=== PATIENT | male | born 2000 | race African-American/Black ===

== ENCOUNTER 2023-02-25 15:49 | Emergency (ER) | payer OTHER, SELFPAY ==
[2023-02-25 15:57] VITALS: BP 145/65; PULSE 77; RESP 20; TEMP 37.5; O2SAT 99
--- NOTE | 2023-02-25 17:14 | ED.URI ---
HPI - URI/Sore Throat General Chief Complaint: Upper Respiratory Infection Stated Complaint: Sore Throat, Congestion, Vommiting Time Seen by Provider: 02/25/23 17:14 Source: patient, RN notes reviewed and old records reviewed Mode of arrival: ambulatory Limitations: no limitations History of Present Illness HPI Narrative: 23 year old male who presents to [facility] care with complaints of sore throat, respiratory congestion,cough,and some vomiting with some mild abdominal discomfort mid abdomen and sweats for 3 day duration. Patient reports that he has been taking Benadryl for his symptoms. Patient denies any known fevers, denies any body aches.Patient states that he has had intermittent episodes of vomiting has not vomited today is able to drink liquids but appetite is decreased, denies any diarrhea reports normal BM today. MD elicited complaint: cough, sore throat, rhinorrhea, nasal congestion and other (nausea and vomiting.) Onset (ago): day(s) (3) Pain scale (0-10): 5 Able to tolerate fluids by mouth: Yes Treatments prior to arrival: other (Benadryl) Related Data Allergies Allergy/AdvReac Type Severity Reaction Status Date / Time No Known Allergies Allergy Verified 02/25/23 16:05 Review of Systems Review of Systems: CONSTITUTIONAL: Reports malaise,no chills,positive for sweats, no known fever. EYES: Denies visual changes, redness, or discharge. ENT: Reports rhinorrhea, congestion, no sinus pain,no otalgia and positive for sore throat. CARDIOVASCULAR: Denies chest pain, palpitations, or edema. RESPIRATORY: Reports cough.? Denies dyspnea. GASTROINTESTINAL:Reports mild mid abdominal pain, nausea, vomiting,no diarrhea SKIN: Denies rash or itching. MUSCULOSKELETAL: Denies myalgia. NEUROLOGIC: Denies headache. All systems reviewed & are unremarkable except as noted in HPI and below PMFSH Past Medical History Medical History (Updated 02/27/23 @ 17:40 by Daksha Daily NP) No pertinent past medical history Surgical History Surgical History (Updated 02/27/23 @ 17:39 by Daksha Daily NP) No pertinent past surgical history Social History Social History (Updated 02/27/23 @ 17:31 by Daksha Daily NP) Smoking status: Current every day smoker Tobacco type: e-cigarettes/vaping Alcohol intake: current Alcohol use details: social Substance use type: does not use Living arrangements: with family Gender identity (if verbalized by the patient): Male Comments At time of signature, agree with nursing past medical, surgical, social and family history. There is no relevant family history pertinent to the presenting complaint Exam Narrative: GENERAL: Well-appearing, well-nourished, and in no acute distress. HEAD: Normocephalic EYES: PERRLA, conjunctivae clear ENT: Nares clear, turbinates edematous and erythematous, clear discharge. Mucous membranes moist. TM pearly schultz with dull light reflex bilaterally; no tragal tenderness. Oropharynx erythematous without lesions. Tonsils not enlarged and without exudate, no drooling, no hoarseness, no trismus, uvula midline.post nasal drainage noted NECK: Supple. No lymphadenopathy CHEST: Clear to auscultation, breath sounds equal. No wheezing, rhonchi, rales, or stridor. No respiratory distress, speaks in full sentences.cough noted,SAO2 99% on room air HEART: Regular rate and rhythm. No murmur heard. SKIN: Warm, dry, no rash. NEURO: Alert and oriented x3. PSYCH: Normal mood and affect Course Course Emergency Course: Patient is aware of diagnosis, understands and agrees to treatment plan.? Anticipatory guidance given.? Patient agrees to follow-up as directed and is aware of reasons to seek care at the emergency department. Portions of this record may have been created with voice recognition software Level of Care: Express Care Visit Vital Signs Vital signs: Vital Signs Temperature 37.5 C 02/25/23 15:57 Pulse Rat
== END 2023-02-25 17:30 | disposition home or self-care (01) ==
PROVIDERS: Emergency Provider Registered Nurse
DX: J06.9 Acute upper respiratory infection, unspecified (principal); J02.9 Acute pharyngitis, unspecified; F17.290 Nicotine dependence, other tobacco product, uncomplicated
CPT/HCPCS: 87081; 87880; 99213; G0463

== ENCOUNTER 2024-06-27 17:51 | Emergency (ER) | payer OTHER, SELFPAY ==
--- NOTE | ~2024-06-27 | XR_ITS ---
EXAM: XR ankle LT min 3V DATE: 06/27/2024 18:25 HISTORY: injury playing basketball, swelling lateral malleolus. . COMPARISON: None available. FINDINGS: Normal mineralization. Small ossific fragment distal to the lateral malleolus. No lytic or blastic lesion. Joint spaces are maintained. No erosion or periosteal change. Lateral soft tissue sw elling. IMPRESSION: Small lateral malleolus tip avulsion. Reviewed, dictated and finalized at location K.
[2024-06-27 18:00] VITALS: BP 133/76; PULSE 63; RESP 20; TEMP 36.7; O2SAT 99
--- NOTE | 2024-06-27 18:12 | ED_ITS ---
HPI - General Adult General Chief complaint: Extremity Injury, Lower Stated complaint: left ankle injury Time Seen by Provider: 06/27/24 18:12 Source: patient Mode of arrival: ambulatory Limitations: no limitations History of Present Illness HPI narrative: 24 year old male who presents to [facility] care with complaints of pain to his left lateral ankle region after playing basketball yesterday and jumped up and came down hard on his left foot, Patient has noted swelling and bruising to his left lateral ankle with increased pain with ambulation and movement of ankle.. Patient reports that he has had past ankle sprain to the left lateral ankle. Patient reports that he has iced his left lateral ankle but has not taken any OTC medications for his symptoms. MD complaint: left lateral ankle pain Onset (ago): day(s) (day 2 of symptoms) Location: left (lateral ankle) and lower extremity Severity: moderate Severity scale (1-10): 3 Treatments prior to arrival: cold therapy Related Data Home Medications ?Medication ?Instructions ?Recorded ?Confirmed ?Last Taken ?Type No Home Medications 06/27/24 06/27/24 Unknown History Allergies Allergy/AdvReac Type Severity Reaction Status Date / Time No Known Allergies Allergy Verified 06/27/24 18:26 Review of Systems Review of Systems: CONSTITUTIONAL: Denies fever, chills, or sweats. EYES: Denies visual changes, redness, or discharge. ENT: Denies rhinorrhea, congestion, sore throat, or otalgia. CARDIOVASCULAR: Denies chest pain, palpitations, or edema. RESPIRATORY: Denies cough or dyspnea. GASTROINTESTINAL: Denies abdominal pain, nausea, vomiting, or diarrhea. GENITOURINARY: Denies dysuria or hematuria. SKIN: Denies rash or itching. MUSCULOSKELETAL: Denies back pain, positive for left lateral ankle pain and swelling, or myalgia. NEUROLOGIC: Denies headache, numbness, or weakness. PSYCHIATRIC: Denies anxiety or depression. All systems reviewed & are unremarkable except as noted in HPI and below PMFSH Past Medical History Medical History No pertinent past medical history Surgical History Surgical History No pertinent past surgical history Social History Social History Smoking status: Current every day smoker Tobacco type: e-cigarettes/vaping Alcohol intake: current Alcohol use details: social Substance use type: does not use Living arrangements: with family Gender identity (if verbalized by the patient): Male Comments At time of signature, agree with nursing past medical, surgical, social and family history. There is no relevant family history pertinent to the presenting complaint Exam Narrative: GENERAL: Well-appearing, well-nourished, and in no acute distress. HEAD: Normocephalic, atraumatic. EYES: PERRLA and EOMI. ENT: Nares clear, no rhinorrhea or epistaxis. Mucous membranes moist. NECK: Supple.no lymphadenopathy CHEST: Clear to auscultation. No respiratory distress. SAO2 99% on room air HEART: Regular rate and rhythm. No murmur heard. Normal peripheral pulses. ABDOMEN: Soft, nontender, nondistended, normal active bowel sound EXTREMITIES: Normal range of motion. No edema.Exception noted to pain and swelling of left lateral ankle with ecchymosis, pain to lateral ankle with any movement, sensation and circulation is intact to his left foot with strong pedal pulse. SKIN: Warm, dry, no rash. NEURO: No focal deficits. Alert and oriented x3. Course Course Emergency Course: Patient is aware of diagnosis, understands and agrees to treatment plan.? Anticipatory guidance given.? Patient agrees to follow-up as directed and is aware of reasons to seek care at the emergency department. Portions of this record may have been created with voice recognition software Level of Care: Express Care Visit Vital Signs Vital signs: Vital Signs Temperature 36.7 C 06/27/24 18:00 Pulse Rate 63 06/27/24 18:00 Respiratory Rate 20 06/27/24 18:00 Blood Pressure 133/76 06/27/24 18:00 Pulse Oximetry 99 06/27/24 18:00 Oxygen Delivery Room Air 06/27/24 18:00 Temperature 36.7 C 06/27/24 18:00 Pulse Rate 63 06/27/24 18:00 Respiratory Rate 20 06/27/24 18:00 Blood Pressure 133/76 06/27/24 18:00 Pulse Oximetry 99 06/27/24 18:00 Oxygen Delivery Room Air 06/27/24 18:00 Reviewed Medical Decision Making MDM Narrative Medical decision making narrative: Exam findings and imaging show no acute concerns or changes; patient is non- toxic appearing and is in no distress.? Patient is appropriate for outpatient treatment and follow-up Differential Diagnosis Differential Diagnosis: avulsion fracture left lateral ankle, pain left ankle, sprain left ankle, swelling and bruising to left lateral ankle Medical Records Medical records reviewed: Yes I reviewed the external patient's medical records. Vital Signs Vital Signs: Vital Signs Temperature 36.7 C 06/27/24 18:00 Pulse Rate 63 06/27/24 18:00 Respiratory Rate 20 06/27/24 18:00 Blood Pressure 133/76 06/27/24 18:00 Pulse Oximetry 99 06/27/24 18:00 Oxygen Delivery Room Air 06/27/24 18:00 Temperature 36.7 C 06/27/24 18:00 Pulse Rate 63 06/27/24 18:00 Respiratory Rate 20 06/27/24 18:00 Blood Pressure 133/76 06/27/24 18:00 Pulse Oximetry 99 06/27/24 18:00 Oxygen Delivery Room Air 06/27/24 18:00 reviewed Imaging Data Attestation: I personally reviewed and interpreted this imaging study as follows: My impression: small lateral malleolus tip avulsion, soft tissue swelling lateral left ankle Radiologist's impression: Launch?[facility] [address] [place] [address] XRay Report Signed Patient: Miko Pulliam : 2000 MR#: [id number] Age: 24 Acct:[id number] Loc: [facility] ADM Date: 06/27/24Attending Dr: Ordering Physician: Daksha Daily APRN Date of Service: 06/27/24 Procedure(s): XR ankle LT min 3V Accession Number(s): [id number] cc: Daksha Daily APRN~ EXAM: XR ankle LT min 3V DATE: 06/27/2024 18:25 HISTORY: injury playing basketball, swelling lateral malleolus. . COMPARISON: None available. FINDINGS: Normal mineralization. Small ossific fragment distal to the lateral malleolus. No lytic or blastic lesion. Joint spaces are maintained. No erosion or periosteal change. Lateral soft tissue swelling. IMPRESSION: Small lateral malleolus tip avulsion. Reviewed, dictated and finalized at location K. Please be advised this is a medical document. It is intended for [id number] communication. It is written in medical language and may contain unfamiliar abbreviations or verbiage. Medical documents are intended to carry relevant information, facts as evident, and the clinical opinion of the practitioner at the time of the encounter. This report may have been done utilizing a voice recognition system. Attempts have been made to correct errors. However, there may be uncorrected grammatical, spelling, and recognition errors present. The file time of this note does not necessarily represent the time of service. Dictated By: Farzad Neville MD 06/27/241914 Signed By: <Electronically signed by Farzad Neville MD in OV> Critical Care Time Critical Care Time Critical Care Time: No Discharge Plan Discharge Clinical Impression: Avulsion fracture of left ankle Qualifiers: Encounter type: initial encounter Fracture type: closed Qualified Code(s): S82.892A - Other fracture of left lower leg, initial encounter for closed fracture Patient Disposition: Home, Self-Care Condition: Stable Instructions: Antibiotic Form, Avulsion Fracture (ED) Additional Instructions: orthopedic splint as directed for comfort for the next 5-7 days Crutches as directed if needed Tylenol for lesser pain Ibuprofen regularly for the next 2-3 days for the inflammation Follow-up with orthopedic surgeon Dr Valera rehabilitation services coordinator orthopedic call his office in morning [phone] Follow-up with PCP if further problems or concerns Ice to the area 20-30 minutes 4-6 times a day Elevate above heart If your symptoms persist, change or worsen significantly before you can contact your personal physician then please, without delay, go to the emergency department for further evaluation. Follow-up with PCP in 7-10 days or sooner if needed Follow up with PCP soon in regards to your blood pressure which is elevated above threshold for referral. Blood pressure above 120/80 may indicate pre- hypertension. 133/76 Patient Language: Dutch Prescriptions: No Action No Home Medications Follow-up/Referrals: PHYSICIAN NOT ON STAFF,NONSTAFF [Primary Care Provider] - Shamar Valera MD [Physician] - (small lateral malleolus tip avulsion needs follow up) Stand Alone Forms: Work/School Release IP Time of Disposition: 20:08 Quality [place] Coma Scale Eyes: Open Verbal: Oriented and Alert Motor: Follows Commands [place] Coma Total Score: 15
--- OUTSIDE RECORDS SUMMARY | 2024-06-27 19:21 | XMS_ITS | Referral Summary ---
Author Organization [facility] Address [address] [place] [address] Care Team Providers Care Offset Plate Maker Name Role Phone Ruslna Gunderson MD Primary Care Provider [phone] Source Comments [facility],non-[facility] Affiliates and Associated Physician Practices is amultiple site organization consisting of ambulatory clinics and hospital sitesin [place], [place], [place] and [place]. This disclosure is being madepursuant to the Care Everywhere program and may not contain all information available regarding this patient. Last updated 18.[facility] Allergies No known active allergies Social History Tobacco Use Types Packs/Day Years Used Date Smoking Tobacco: Passive Smo ke Exposure - Never Smoker Alcohol Use Standard Drinks/Week Comments No 0 (1 standard drink = 0.6 oz pur e alcohol) Sex and Gender Information Value Date Recorded Sex Assigned at Not on file Gender Identity Not on file Sexual Orientation Not on file Last Filed Vital Signs Vital Sign Reading Time Taken Comments Blood Pressure - - Pulse 85 01/30/2013 10:54 AM CDT Temperature 37.6 C (99.6 F) 01/30/2013 10:54 AM CDT Respiratory Rate - - Oxygen Saturation 97% 01/30/2013 10:54 AM CDT Inhaled Oxygen Concentration - - Weight 33.6 kg (74 lb) 01/30/2013 10:54 AM CDT Height - - Body Mass Index - - Plan of Treatment Not on file Care Teams Offset Plate Maker Relationship Specialty Start Date End Date Ruslan Gunderson MD [address] [place] [address] PCP - General Pediatrics 01/30/13
--- OUTSIDE RECORDS SUMMARY | 2024-06-27 19:21 | XMS_ITS | Clinical Summary ---
Author Organization [facility] Address [address] [place] [address] Care Team Providers Care Storage Center Manager Name Role Phone Ruslan Gunderson MD Primary Care Provider [phone] Source Comments [facility],non-[facility] Affiliates and Associated Physician Practices is amultiple site organization consisting of ambulatory clinics and hospital sitesin [place], [place], [place] and [place]. This disclosure is being madepursuant to the Care Everywhere program and may not contain all information available regarding this patient. Last updated 18.[facility] Allergies No known active allergies Social History [...] Mass Index - - Plan of Treatment Health Maintenance Due Date Last Done Comments HIV SCREENING 2017 HPV VACCINE (1 - Male 3-dose series) 2017 MENINGOCOCCAL (Group B) VACC INE (1 of 2 - Standard) 2018 HEPATITIS C SCREENING 01/17/2020 DTAP/TDAP/TD VACCINES (1 - Tdap) 2021 HEPATITIS B VACCINE (1 of 3 - 19+ 3-dose series) 2021 COVID-19 VACCINE (1 - 2023-2 5 season) 2023 INFLUENZA VACCINE (#1) 2023 DEPRESSION SCREENING 04/20/2024 ZOSTER VACCINE (1 of 2) 01/22/2052 HIB VACCINE Aged Out No longer eligi ble based on patient's age to complete this topic MENINGOCOCCAL VACCINE Aged Out No bert clayton eligible based on patient's age to complete this topic PNEUMOCOCCAL VACCINE Aged Out No long er eligible based on patient's age to complete this topic Care Teams Storage Center Manager Relationship Specialty Start Date End Date Ruslan Gunderson MD [address] [id number] PCP - General Pediatrics 01/30/13
--- OUTSIDE RECORDS SUMMARY | 2024-06-27 19:21 | XMS_ITS | Clinical Summary ---
Author Organization [facility] Address [address] [place] [address] Care Team Providers Care Lens Mold Setter Name Role Phone Ruslan Gunderson MD Primary Care Provider Allergies No known active allergies Medications cetirizine (ZyrTEC) 10 mg chewable tablet chew 1 tablet (10MG) by ORAL route every day 30 1 02/11/2010 Active methylphenidate (RITALIN) 10 mg tablet take 1 tablet (10MG) by oral route 2 times every day 60 0 08/12/2012 Active methylphenidate HCl (RITALIN) 10 mg tablet take 1 tablet (10MG) by oral route 2 times every day 60 0 08/12/2012 Active desmopressin (DDAVP) 0.2 mg tablet Take 2 tablets by mouth at bedtime 60 tablet 2 09/04/2017 Active Active Problems Problem Noted Date Diagnosed Date Chronic bilateral low back pain without sciatica 08/24/2020 Encounter for routine child health examination without abnormal findings 11/18/2016 Infectious warts 06/26/2015 Overview (07/25/2016): Warts Attention deficit disorder 09/03/2013 Overview (02/23/2017): Ritalin 10mg BID. LAST Rx 03/2015. Atopic rhinitis 09/03/2013 Overview (07/25/2016): ALLERGIC RHINITIS NOS Asthma 09/03/2013 Overview (07/25/2016): ASTHMA NOS Immunizations Immunization Administration Dates Next Due DTaP 5 Pertussis 11/01/2007, 8,02/28/2004,02/27,2002,2002,2002 ,2002,2002,2002 HPV, Quadrivalent 02/03/2013 HPV9 11/25/2017,11/18/2016 Hep A, Pediatric 12/26/2005, 6,03/19/2005,03/19 Hep B, Adolescent or Pediatric 2002,2001,2002 Hib (HbOC) 02/28/2004, 3,2002,03/31 IPV 11/04/2011, 8,2002,03/31 Influenza, Quadrivalent, Spl it, Intramuscular 02/20/2017 Influenza, Split 02/23/2012,01/31/2011, 0 Influenza, Trivalent, IM (MDV) 2,02/23/2009,02/23/2009,01/22,01/22/2009 MMR 11/01/2007,02/28/2004 Meningococcal Conjugate (Menveo) 10/18/2019 Meningococcal MCV4P (Menactra) 02/03/2013 Pneumococcal Conjugate 7-Valent 2002,05/26,2002 Tdap 02/03/2013 Varicella 11/01/2007,02/28/2004 Medical History Medical History Date Comments Hx Other Medical no glasses or c ontacts Family History Medical History Relation Name Comments Migraines Mother Migraines; Relation Name Status Comments Mother Social History Tobacco Use Types Packs/Day Years Used Date Smoking Tobacco: Never Assessed Sex and Gender Information Value Date Recorded Sex Assigned at Not on file Legal 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 Gender Identity Not on file Sexual Orientation Not on file Obstetrics History Last Filed Vital Signs Vital Sign Reading Time Taken Comments Blood Pressure 120/68 10/18/2019 2:42 PM CDT Pulse 68 09/30/2012 2:31 PM CDT Temperature 36.2 C (97.1 F) 08/24/2020 12:58 PM CDT Respiratory Rate - - Oxygen Saturation 97% 10/03/2010 8:29 AM CDT Inhaled Oxygen Concentration - - Weight 63 kg (139 lb) 08/24/2020 12:58 PM CDT Height 182.2 cm (5' 11.75 ) 10/18/2019 2:42 PM C DT Body Mass Index - - Plan of Treatment Health Maintenance Due Date Last Done Comments Depression Screening 2002 Hepatitis C Screening 2002 Pneumococcal vaccine <65 (1 of 1 - PPSV23) 01/22/2008 2002, 2002, 2002 Meningococcal B Vaccine (1 o f 2 - Standard) 2018 Regular Well Visit/Exam 18-64 01/22/2020 DTaP/Tdap/Td Vaccine (7 - Td or Tdap) 02/03/2023 02/03/2013, 11/01/2007, 11/01/2007, Additional history exists Influenza Vaccine (#1) 2023 7, 02/23/2012, 02/23/2012, Additional history exists Hepatitis B Screening Completed 2002 , 2002, 2002 Varicella Vaccines Completed 11/01/2007, 02/28/2004 HPV Vaccines Completed 11/25/2017, 04/2016, 02/03/2013 Insurance [facility] CHO[facility] PL[facility] PL[facility] Care Teams Lens Mold Setter Relationship Specialty Start Date End Date Ruslan Gunderson MD [address] [place] [address] PCP - General 11/13/09
--- OUTSIDE RECORDS SUMMARY | 2024-06-27 19:21 | XMS_ITS | Patient Health Summary ---
Author Organization [facility] Address [address] [place] [address] Care Team Providers Care Construction Cost Estimator Name Role Phone Ruslan Gunderson MD Primary Care Provider [phone] Note from [facility],non-owned Affiliates and Associated Physician Practices is amultiple site organization consisting of ambulatory clinics and hospital sitesin [place], [place], [place] and [place]. This disclosure is being madepursuant to the Care Everywhere program and may not contain all information available regarding this patient. Last updated 18.[facility] Allergies No known active allergies Social [...] - - Body Mass Index - - Care Teams Construction Cost Estimator Relationship Specialty Start Date End Date Ruslan Gunderson MD [address] [place] [address] PCP - General Pediatrics 01/30/13
--- OUTSIDE RECORDS SUMMARY | 2024-06-27 19:21 | XMS_ITS | Referral Summary ---
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 PL[facility] Care Teams Liability Claims Adjuster Relationship Specialty Start Date End Date Ruslan Gunderson MD [address] [place] [id number] PCP - General 11/13/09
== END 2024-06-27 20:15 | disposition home or self-care (01) ==
PROVIDERS: Emergency Provider Registered Nurse
DX: S82.62XA Displaced fracture of lateral malleolus of left fibula, initial encounter for closed fracture (principal); W22.09XA Striking against other stationary object, initial encounter; Y93.67 Activity, basketball; F17.290 Nicotine dependence, other tobacco product, uncomplicated
CPT/HCPCS: 29515; 73610; 99214; G0463

== ENCOUNTER 2024-10-04 16:57 | Emergency (ER) | payer OTHER, SELFPAY ==
--- OUTSIDE RECORDS SUMMARY | 2024-10-04 17:00 | XMS_ITS | Clinical Summary ---
Author Organization [facility] Address [address] [place] [address] Care Team Providers Care Auto Radio Mechanic Name Role Phone Ruslan Gunderson MD Primary Care Provider [phone] Source Comments [facility],non-[facility] Affiliates and Associated Physician Practices is amultiple site organization consisting of ambulatory clinics and hospital sitesin [place], [place], [place] and [place]. This disclosure is being madepursuant to the Care Everywhere program and may not contain all information available regarding this patient. Last updated 18.[facility] Allergies No known active allergies Social History Tobacco Use Types Packs/Day Years Used Date Smoking Tobacco: Passive Smo ke Exposure - Never Smoker Alcohol Use Standard Drinks/Week Comments No 0 (1 standard drink = 0.6 oz pur e alcohol) Sex and Gender Information Value Date Recorded Sex Assigned at Not on file Legal Sex Male 5:44 AM LINE WALKER Gender Identity Not on file Sexual Orientation [...] series) 2017 MENINGOCOCCAL (Group B) VACC INE SHARED DECISION-MAKING (1 of 2 - Standard) 2018 HEPATITIS C SCREENING 01/17/2020 DTAP/TDAP/TD VACCINES (1 - Tdap) 2021 HEPATITIS B VACCINE (1 of 3 - 19+ 3-dose series) 2021 COVID-19 VACCINE (1 - 2023-2 5 season) 2023 DEPRESSION SCREENING 04/20/2024 INFLUENZA VACCINE (Season Ended) 2024 ZOSTER VACCINE (1 of 2) 01/22/2052 HIB VACCINE Aged Out No longer eligi ble based on patient's age to complete this topic MENINGOCOCCAL GROUPS A/C/Y/W VACCINE Aged Out No longer eligible b ased on patient's age to complete this topic PNEUMOCOCCAL VACCINE Aged Out No long er eligible based on patient's age to complete [place] [address] [facility] Care Teams Auto Radio Mechanic Relationship Specialty Start Date End Date Ruslan Gunderson MD [address] [place] [address] PCP - General Pediatrics 01/30/13
--- OUTSIDE RECORDS SUMMARY | 2024-10-04 17:00 | XMS_ITS | Referral Summary ---
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
--- OUTSIDE RECORDS SUMMARY | 2024-10-04 17:00 | XMS_ITS | Clinical Summary ---
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
[2024-10-04 17:15] VITALS: BP 110/70; PULSE 64; RESP 18; TEMP 37.1; O2SAT 100
--- NOTE | 2024-10-04 17:33 | ED_ITS ---
HPI - Nausea/Vomiting/Diarrhea General Chief complaint: Nausea/Vomiting/Diarrhea Stated complaint: Abdominal Pain/Diarrhea Source: patient Mode of arrival: ambulatory Limitations: no limitations History of Present Illness HPI Narrative: Patient is a 24 year old male that presents to the clinic with complaints of nausea, vomiting, and diarrhea x 1 day. He states that he is having diarrhea 5-6 times per day and has only had one episode of vomiting. Denies any fevers, body aches, chills, blood in his stool, lightheadedness, abdominal pain, shortness of breath, or difficulty swallowing. Related Data Allergies Allergy/AdvReac Type Severity Reaction Status Date / Time No Known Allergies Allergy Verified 10/04/24 17:23 Review of Systems Review of Systems: CONSTITUTIONAL: Denies body aches, fever, chills, or sweats. EYES: Denies visual changes, redness, or discharge. ENT: Denies rhinorrhea, congestion, sore throat, or otalgia. CARDIOVASCULAR: Denies chest pain, palpitations, or edema. RESPIRATORY: Denies cough or dyspnea. GASTROINTESTINAL: Reports nausea, vomiting, and diarrhea. Denies abdominal pain. GENITOURINARY: Denies dysuria or hematuria. SKIN: Denies rash, itching, or wounds. MUSCULOSKELETAL: Denies back pain, joint pain, or myalgia. NEUROLOGIC: Denies headache, numbness, tingling, or weakness. PSYCH: Denies depression or anxiety. All systems reviewed & are unremarkable except as noted in HPI and below PMFSH Past Medical History Medical History No pertinent past medical history Surgical History Surgical History No pertinent past surgical history Social History Social History Smoking status: Current every day smoker Tobacco type: e-cigarettes/vaping Alcohol intake: current Alcohol use details: social Substance use type: does not use Living arrangements: with family Gender identity (if verbalized by the patient): Male Comments At time of signature, I have reviewed and agree with nursing past medical, surgical, social and family history unless otherwise noted. Please see nursing chart for further information. There is no relevant family history pertinent to the presenting complaint. Exam Narrative: GENERAL: mildly ill-appearing, well-nourished, and in no acute distress. EYES: EOMI. No redness or drainage. Conjunctivae normal. ENT: Mucous membranes pink and moist. Nares clear. No rhinorrhea. TMs normal bilaterally. No Throat Erythema or tonsillar exudate, uvula midline. NECK: Normal AROM. Supple. No lymphadenopathy. CHEST: No respiratory distress. Clear to auscultation. HEART: Regular rate and rhythm. No murmur appreciated. Normal peripheral pulses. ABDOMEN: Soft, nontender, nondistended, normal active bowel sounds. SKIN: Warm, dry, no rash. Capillary refill normal. Normal skin turgor. NEURO: No focal deficits. Alert and oriented x3. Gait steady. PSYCH: Normal affect. No signs of depression or anxiety. Course Course Level of Care: Express Care Visit Vital Signs Vital signs: Vital Signs Temperature 98.8 F 10/04/24 17:15 Pulse Rate 64 10/04/24 17:15 Respiratory Rate 18 10/04/24 17:15 Blood Pressure 110/70 10/04/24 17:15 Pulse Oximetry 100 10/04/24 17:15 Oxygen Delivery Room Air 10/04/24 17:15 Temperature 98.8 F 10/04/24 17:15 Pulse Rate 64 10/04/24 17:15 Respiratory Rate 18 10/04/24 17:15 Blood Pressure 110/70 10/04/24 17:15 Pulse Oximetry 100 10/04/24 17:15 Oxygen Delivery Room Air 10/04/24 17:15 Reviewed. MDM - Nausea/Vomiting/Diarrhea MDM Narrative Medical decision making narrative: Discussed physical exam findings. Zofran prescription given. Advised supportive measures and signs/symptoms to go to the ER. Pt is appropriate for outpatient treatment and follow up. Differential Diagnosis Differential diagnosis: Likely food poisoning, gastroenteritis, dehydration and other (viral infection) Critical Care Time Critical Care Time Critical Care Time: No Discharge Plan Discharge Clinical Impression: Nausea & vomiting Qualifiers: Vomiting type: unspecified Qualified Code(s): R11.2 - Nausea with vomiting, unspecified Diarrhea Qualifiers: Diarrhea type: unspecified type Qualified Code(s): R19.7 - Diarrhea, unspecified Patient Disposition: Home Condition: Stable Instructions: Acute Nausea and Vomiting (DC), Acute Diarrhea (ED) Additional Instructions: Take Zofran as prescribed. Stay hydrated. Take small sips of fluid containing electrolytes frequently. Clear liquids (broth, jello, tea, sprite, pedialyte) Izard foods (bananas, rice, applesauce, toast, crackers) Avoid fatty, greasy, fried or spicy foods. Limit dairy until symptoms are improved. Recommend probiotic such as align or lactobacillus to help with symptoms. You should go to the hospital if you experience persistent nausea and vomiting that does not resolve and does not allow you to tolerate any food or fluids, fevers, increasing abdominal pain, persistent diarrhea, dizziness, fainting, or for any other concerns. Follow up with primary care provider in 3 days. Patient Language: Citizen Of [place] Prescriptions: New ondansetron 4 mg tablet,disintegrating 4 mg PO Q8H PRN (Reason: nausea and vomiting) Qty: 14 0RF Follow-up/Referrals: PHYSICIAN,MOTTLER MACHINE FEEDER [Primary Care Provider] - Stand Alone Forms: Work/School Release IP Time of Disposition: 17:40
== END 2024-10-04 17:50 | disposition home or self-care (01) ==
DX: R11.2 Nausea with vomiting, unspecified (principal); R19.7 Diarrhea, unspecified; F17.290 Nicotine dependence, other tobacco product, uncomplicated
CPT/HCPCS: 99213; G0463

== ENCOUNTER 2025-03-27 17:47 | Emergency (ER) | payer OTHER, SELFPAY ==
[2025-03-27 17:54] VITALS: BP 116/80; PULSE 88; RESP 14; TEMP 36.9; O2SAT 96
--- NOTE | 2025-03-27 18:17 | ED_ITS ---
HPI - Nausea/Vomiting/Diarrhea General Chief complaint: Nausea/Vomiting/Diarrhea Stated complaint: Diarrhea Time Seen by Provider: 03/27/25 18:05 Source: patient and RN notes reviewed Mode of arrival: ambulatory Limitations: no limitations History of Present Illness HPI Narrative: 25-year-old male patient Presents Express Care complaining of diarrhea that started last night. Says he is here for work note see missed work this morning for it. Patient denies any abdominal pain, fevers, body aches, chills, vomiting, nausea, black tarry stools, bloody stools, vomiting blood, or any other symptoms. Patient reports brown watery diarrhea. Patient denies any blood or mucus in stools. Patient says the diarrhea has been improving has had diarrhea since 12 hours ago. Patient took some Pepto-Bismol today that helped the symptoms.. Patient denies recent travel outside the country. Related Data Home Medications ?Medication ?Instructions ?Recorded ?Confirmed ?Last Taken ?Type No Home Medications 03/27/25 03/27/25 U nknown History Allergies Allergy/AdvReac Type Severity Reaction Status Date / Time No Known Allergies Allergy Verified 03/27/25 18:02 Review of Systems Review of Systems: CONSTITUTIONAL: Denies fever, chills, body aches, or sweats. EYES: Denies visual changes, redness, or discharge. ENT: Denies rhinorrhea, congestion, sore throat, or otalgia. CARDIOVASCULAR: Denies chest pain, palpitations, or edema. RESPIRATORY: Denies cough or dyspnea. GASTROINTESTINAL: Denies abdominal pain, bloody stools, hematochezia, nausea, vomiting. Positive for diarrhea. GENITOURINARY: Denies dysuria or hematuria. SKIN: Denies rash or itching. MUSCULOSKELETAL: Denies back pain, joint pain, or myalgia. NEUROLOGIC: Denies headache, numbness, or weakness. PSYCHIATRIC: Denies anxiety or depression. All other systems reviewed are negative, except as documented in HPI. [facility] Past Medical History Medical History No pertinent past medical history Surgical History Surgical History No pertinent past surgical history Social History Social History (Reviewed 12/08/25 @ 18:19 by DOMINIC Espino Smoking status: Current every day smoker Tobacco type: e-cigarettes/vaping Alcohol intake: current Alcohol use details: social Substance use type: does not use Living arrangements: with family Gender identity (if verbalized by the patient): Male Exam Narrative: GENERAL: This is a well-nourished, well-developed adult, in no apparent distress. They are non ill-appearing, nontoxic appearing. HEAD: normocephalic, atraumatic. EYES: Sclera clear/white. Vision is grossly intact. Conjunctiva normal bilaterally. Extraocular movements intact. EARS: External ears normal, Hearing grossly intact. NOSE: External nose normal THROAT: Mucous membranes moist NECK: Normal range of motion CARDIOVASCULAR: Regular rate and rhythm. Normal S1-S2. No clicks, gallops, rubs, or murmurs. RESPIRATORY: Respiratory rate normal, respiratory effort nonlabored, no respiratory distress. Lung sounds clear to auscultation. Breath sounds equal bilaterally. No adventitious lung sounds. GASTROINTESTINAL: Abdomen soft, flat, non-tender, nondistended. Bowel sounds are active. No hepato-splenomegaly, or palpable masses. No guarding or rigidity. No rebound tenderness. SKIN: warm, Dry, intact with no suspicious lesions or rash, good texture and turgor. NEURO: awake, alert, and oriented to person, place and time. There were no obvious focal neurologic abnormalities. EXTREMITIES: No joint tenderness, effusion, or edema noted. BACK: Nontender without deformity. No CVA tenderness. Course Course Level of Care: Express Care Visit Vital Signs Vital signs: Vital Signs Temperature 98.4 F 03/27/25 17:54 Pulse Rate 88 03/27/25 17:54 Respiratory Rate 14 03/27/25 17:54 Blood Pressure 116/80 03/27/25 17:54 Pulse Oximetry 96 03/27/25 17:54 Oxygen Delivery Room Air 03/27/25 17:54 Temperature 98.4 F 03/27/25 17:54 Pulse Rate 88 03/27/25 17:54 Respiratory Rate 14 03/27/25 17:54 Blood Pressure 116/80 03/27/25 17:54 Pulse Oximetry 96 03/27/25 17:54 Oxygen Delivery Room Air 03/27/25 17:54 [facility] MDM Narrative Medical decision making narrative: Patient reports improvement in his symptoms since starting yesterday. No nausea or vomiting. No peritoneal findings, no abdominal tenderness. Patient does not appear clinically dehydrated. Patient nontoxic appearing, no apparent distress. Discussed supportive care. Discussed physical exam findings. Advised supportive measures and signs/symptoms to go to the ER. Pt is appropriate for outpt treatment and f/u. Differential Diagnosis Differential Diagnosis: Gastroenteritis, diarrhea, traveler's diarrhea Discharge Plan Discharge Clinical Impression: Diarrhea Qualifiers: Diarrhea type: presumed infectious Qualified Code(s): R19.7 - Diarrhea, unspecified Patient Disposition: Home Condition: Stable Instructions: Acute Diarrhea (ED) Additional Instructions: It is likely gastroenteritis. This is normally a self-limiting condition or resolve within 24-48 hours. However sometimes symptoms may linger on up to 7 days. It is recommended not to take anything for the diarrhea and allow the diarrhea to run its course. If the diarrhea persist and you feeling better, you may take Pepto-Bismol as needed to help control the diarrhea. Recommend hydration with plenty of fluids electrolyte supplementation such as Pedialyte. Follow-up PCP in 3-5 days. If Your unable to keep anything down, you developed abdominal pain, fevers, uncontrollable diarrhea, concerns of dehydration, or any other concerns please go to the ER immediately. Patient Language: German Prescriptions: No Action No Home Medications Follow-up/Referrals: PHYSICIAN,AUDIO PRODUCTION INSTRUCTOR [Primary Care Provider, Internal Medicine] Stand Alone Forms: Work/School Release IP Time of Disposition: 18:16
== END 2025-03-27 18:20 | disposition home or self-care (01) ==
DX: R19.7 Diarrhea, unspecified (principal); F17.290 Nicotine dependence, other tobacco product, uncomplicated
CPT/HCPCS: 99211; G0463